=== PATIENT | female | born 1990 | race Caucasian/White ===

== ENCOUNTER → 2018-03-24 | Outpatient (CLI) | payer MEDICAID | LOC: FIMAGING 07:40 | PROVIDERS: ATTEND Obstetrics & Gynecology | DX: O99.212 Obesity complicating pregnancy, second trimester (principal); E66.9 Obesity, unspecified; Z68.41 Body mass index [BMI] 40.0-44.9, adult; Z3A.19 19 weeks gestation of pregnancy ==

== ENCOUNTER → 2018-04-12 | Outpatient (CLI) | payer MEDICAID | LOC: FIMAGING 10:23 | PROVIDERS: ATTEND Obstetrics & Gynecology | DX: O26.02 Excessive weight gain in pregnancy, second trimester (principal); Z3A.21 21 weeks gestation of pregnancy ==

== ENCOUNTER 2018-08-11 21:05 | Inpatient (IN) | payer MEDICAID, OTHER ==
[2018-08-11] MEDS ORDERED: OLIVE OIL 118 ML BTL MISC PRN (21:16)
[2018-08-11] MEDS ORDERED: LR 1,000 ML IV PRN (21:16)
[2018-08-11] MEDS ORDERED: MISOPROSTOL 200 MCG TAB PR PRN (21:16)
[2018-08-11] MEDS ORDERED: OXYTOCIN/RINGERS LACTATE 1,000 ML IV PRN (21:16)
[2018-08-11] MEDS ORDERED: LIDOCAINE 1% 300 MG/30 ML SDV SC PRN (21:16)
[2018-08-11] MEDS ORDERED: IBUPROFEN 600 MG TAB PO PRN (21:16)
[2018-08-11] MEDS ORDERED: TERBUTALINE SULFATE 1 MG/ML VIAL IV PRN (21:16)
[2018-08-11] MEDS ORDERED: EPSOM SALT 454 GM TP PRN (21:16)
[2018-08-11] MEDS ORDERED: DINOPROSTONE 10 MG VAG SUPP VG ONE (21:25)
--- NOTE | 2018-08-11 22:05 | GHP ---
DATE OF ADMISSION: 08/11/2018 ADMITTING DIAGNOSIS: Intrauterine at 39-1/7 weeks' gestation for elective induction of lab or secondary to history of shoulder dystocia. HISTORY OF PRESENT ILLNESS: The patient is a 27-year-old, 4, para 3-0-0-3, with a last menst rual period of 11/10/2017, and an EDC of 08/17/2018, which was confirmed by an 8-week ultrasound. Renetta cerda has had good care at [facility] since registration at 8 weeks' gestation. Her s ignificant risk factors are an elevated BMI. BMI in the first trimester was 40.1. She also has a history of shoulder dystocia with G2. That baby was 8 pounds 4 ounces and suffered a fracture d clavicle at delivery. Her 3rd baby was delivered without complication and that baby was 8 pounds 0 ounces. No other significant risk factors. She elected to have an induction of labor at 39 weeks t o possibly prevent macrosomia. Currently, she has no contractions. No significant vaginal bleeding and has had good movement. No other physical complaints. Negative review of systems. PAST OBSTETRICAL HISTORY: In May of 2008, she had a viable female, 8 pounds 8 ounces, vaginal deliv jeaneth, without complications. In December of 2009, she had a viable female, also 8 pounds 8 ounces, sh oulder dystocia with a fractured clavicle. In November 2011, she had a viable male, 8 pounds 0 ounces , without complications. For that , she was a gestational carrier and that baby is her neph ew. This baby will be hers. She has no other pregnancies. PAST GYNECOLOGICAL HISTORY: She had normal menarche at age 10, interval every 28-33 days, length of 5 days. She has sure and regular last menstrual period of 11/10/2017. She has no history of abnorma l Paps or irregular cycles. PAST MEDICAL HISTORY: Obesity with an elevated BMI. No other significant medical problems. PAST SURGICAL HISTORY: No significant surgical history. ALLERGIES: The patient has no known drug allergies. MEDICATIONS: Include vitamins with iron. LABORATORIES: In this , she is O positive. Antibody negative. RPR nonreactive. Rubella i mmune. Hepatitis negative. HIV negative. Pap normal. Gonorrhea and chlamydia normal. Verify norm al. AFP normal. Hematocrit 34.9. One hour GTT 129. GBS is negative. SOCIAL HISTORY: She is . She lives with her and her 2 daughters. She works in [employer]. She denies tobacco, alcohol, and drug use. No significant family history. OBJECTIVE: Today, she is afebrile. Vital signs are stable. heart tones are 130s, reactive, m oderate variability, category 1. She is not yris. The patient had a Rice placed in the offi ce which was unsuccessful and she is coming this evening for cervical ripening with Cervidil. ASSESSMENT AND PLAN: A 27-year-old, 4, para 3-0-0-3, 39-2/7 weeks' gestation for elective in duction of labor. Secondary history of shoulder dystocia. She is admitted for Cervidil for cervical ripening tonight and she will have Pitocin started in the morning. /[id number]/MODL
[2018-08-11 22:14] LABS: PLATELET COUNT 226 10^3/uL (150-400)
[2018-08-12] MEDS ORDERED: LIDOCAINE 1% 300 MG/30 ML SDV ONE (07:31)
[2018-08-12] MEDS ORDERED: TERBUTALINE SULFATE 1 MG/ML VIAL ONE (07:31)
[2018-08-12] MEDS ORDERED: AMMONIA AROMATIC 1 EACH AMP IH ONE (07:31)
[2018-08-12] MEDS ORDERED: OXYTOCIN 10 UNIT/ML VIAL ONE (07:31)
[2018-08-12] MEDS ORDERED: OLIVE OIL 118 ML BTL ONE (07:31)
[2018-08-12] MEDS ORDERED: MISOPROSTOL 200 MCG TAB ONE (07:32)
--- NOTE | 2018-08-12 09:44 | OBPROG ---
Labor Progress Note Assessment/Plan: Assessment:27 at 39w3d, undergoing elective induction, for history of shoulder dystocia with clavicle fracture with her 2nd delivery. Having some cramping with the Cervidil. Cephalic presentation confirmed. Plan: Remove cervidil at 1030 (12 hours). Check cervix. Likely start pitocin. Reviewed risks - including C/S, with use of pitocin, and with elective induction. EFW - was 38%ile at 36 wk scan by MFM. EFW by Driss's not accurate due to BMI 40. Pelvis has been tested to 8#10oz with last delivery, which was uncomplicated. Will have additional staff at the ready at time of delivery to prepare for possible shoulder dystocia. Marina Carter MD, [facility] 08/12/18 09:38 Subjective/Intrapartum Course: 08/12/18 09:44 Pt doing well. Feeling some irregular cramping. Was able to sleep this morning from about 0400 - 0700. Objective: 08/11/18 21:54 Patient ABO/Rh O POSITIVE 08/11/18 21:54 gen - pleasant obese female in NAD abd - soft, gravid, obese US done - confirms cephalic, currently appears ALTON ext - trace BLE edema, no calf tenderness - Contraction Pattern Assessment Current Contraction Pattern: Irregular - FHR Assessment Hines FHR (bpm): 135 FHR Pattern Variability: Moderate Oxytocin Orders Assessment - Pre-Induction/Augmentation Assessment Gestational Age: 39 week(s) and 1 day(s) ICD10 Worksheet Patient Problems: Problems Problem Status Onset Encounter for elective induction of labor Acute - ICD10 Problem Qualifiers (1) Encounter for elective induction of labor
[2018-08-12] MEDS ORDERED: LR 500 ML IV PRN (10:40)
[2018-08-12] MEDS ORDERED: OXYTOCIN/RINGERS LACTATE 500 ML IV SCH (11:00)
--- NOTE | 2018-08-12 14:26 | OBPROG ---
Labor Progress Note Assessment/Plan: Assessment:27 at 39w2d, undergoing elective induction, for history of shoulder dystocia with clavicle fracture with her 2nd delivery. Having some cramping with the Cervidil. Cephalic presentation confirmed. Plan: Remove cervidil at 1030 (12 hours). Check cervix. Likely start pitocin. Reviewed risks - including C/S, with use of pitocin, and with elective induction. EFW - was 38%ile at 36 wk scan by MFM. EFW by Driss's not accurate due to BMI 40. Pelvis has been tested to 8#10oz with last delivery, which was uncomplicated. Will have additional staff at the ready at time of delivery to prepare for possible shoulder dystocia. Marina Carter MD, [facility] 08/12/18 09:38 A/P: 27 undergoing elective IOL at 39w2d - making some progress with pitocin. Not in active labor yet. Will continue with pitocin. Marina Carter MD, [facility] 08/12/18 14:21 Subjective/Intrapartum Course: 08/12/18 09:44 Pt doing well. Feeling some irregular cramping. Was able to sleep this morning from about 0400 - 0700. Objective: 08/11/18 21:54 Patient ABO/Rh O POSITIVE 08/11/18 21:54 gen - pleasant, NAD SVE 3/60/ -3 - SVE Dilation (cm): 3 Effacement (%): 75 (60 %) Station: -3 Membranes: Intact - Contraction Pattern Assessment Current Contraction Pattern: Irregular - FHR Assessment Hines FHR (bpm): 130 (baseline seems to wander from 120-140) FHR Pattern Variability: Moderate FHR Category: 1 (mostly category 1 with intermittent Cat 2 with occasional variable decels and an occasional late appearing decel. Also had a period of tachycardia in the 160s [id number]) Oxytocin Orders Assessment - Pre-Induction/Augmentation Assessment Presentation: Vertex Gestational Age: 39 week(s) and 1 day(s) Gestational Age Determined By: Ultrasound, Last Menstral Period Estimated Weight: 4046-1317 Membrane Status: Intact Current Contraction Pattern: Irregular - Heart Rate Pattern Hines FHR Baseline (bpm): 130 FHR Category: 1 FHR Pattern Variability: Moderate FHR Accelerations: Absent FHR Decelerations: Variable - Oliveira's Score Dilation: 3-4cm Effacement: 60-70 Station: -3 Cervix: Medium Cervix Position: Posterior Oliveira Score Total: 5 - Induction/Augmentation Consent Risks/Benefits of Procedure Reviewed/Pt Agrees to Proceed: Yes ICD10 Worksheet Patient Problems: Problems Problem Status Onset Encounter for elective induction of labor Acute - ICD10 Problem Qualifiers (1) Encounter for elective induction of labor
[2018-08-12] MEDS ORDERED: BUPIVACAINE 0.25% 30 ML SDV ONE (16:25)
[2018-08-12] MEDS ORDERED: fentaNYL 2MCG/ML/BUP 0.1% RTU 100 ML BAG EP ONE (16:25)
[2018-08-12] MEDS ORDERED: PHENYLEPHRINE HCL 100 MCG/ML SYR ONE (16:25)
[2018-08-12] MEDS ORDERED: fentaNYL 100 MCG/2 ML INJ ONE (16:26)
[2018-08-12] MEDS ORDERED: PHENYLEPHRINE HCL 100 MCG/ML SYR IVP PRN (17:16)
[2018-08-12] MEDS ORDERED: ONDANSETRON 4 MG/2 ML VIAL IVP PRN (17:16)
[2018-08-12] MEDS ORDERED: NALOXONE HCL 0.4 MG/ML INJ IVP PRN (17:16)
--- NOTE | 2018-08-12 17:21 | PREANESOB ---
Obstetric Pre-Anesthesia Info - General Info Proposed Procedure: labor : 4 Para: 3 SAMEER: 08/17/18 Gestational Age: 39 week(s) and 1 day(s) - Info Status: Full Term Monitors: External FHR Pattern: Reassuring - Labor Status Cervical Dilation per last OB SVE: 3 Station per last OB SVE: -3 Pitocin: In Use Indications for Labor Analgesia: Augmentation of Labor, Induction of Labor, Pain Control Labor Epidural: Proposed (see OB notes for more OB info) Anesthesia ROS: prev anesthetics: labor epidural times 3 without problem; family history unknown-adopted; allergy: PCN-[place] childhood reaction; current meds: pnv; ros: morbid obesity, otherwise nl; see other software for vs; Allergies/Adverse Reactions: Allergy/AdvReac Type Severity Reaction Status Date / Time No Known Allergies Allergy Unverified 08/11/18 21:15 Visit Medications: Generic Name Dose Route Start Last Admin Trade Name Freq PRN Reason Stop Dose Admin Lactated Ringer's 1,000 mls @ 0 mls/hr 08/11/18 21:16 08/12/18 11:03 Lr IV 08/12/18 21:15 1,000 mls PRN PRN Administration SEE PROTOCOL CONDITIONS Protocol Per Protocol Oxytocin/Lactated Ringer's 1,000 mls @ 125 mls/hr 08/11/18 21:16 Pitocin 20 Units/Lr (Premix) IV PRN PRN Post bleeding Lactated Ringer's 500 mls @ 500 mls/hr 08/12/18 10:40 Lr IV 08/13/18 10:40 PRN PRN Maternal Hypotension Oxytocin/Lactated Ringer's 500 mls @ 0 mls/hr 08/12/18 11:00 08/12/18 11:03 Pitocin 30 Units/Lr (Premix) IV 02/08/19 10:59 500 mls CONT SARAH Administration Protocol Per Protocol Ibuprofen 600 mg 08/11/18 21:16 Motrin PO ONCE PRN post , pain Lidocaine HCl 300 mg 08/11/18 21:16 Lidocaine Hcl 1% SC 02/07/19 21:15 ONCE PRN episiotomy Magnesium Sulfate 454 gm 08/11/18 21:16 Epsom Salt TP 02/07/19 21:15 Q1H PRN perineal discomfort Misoprostol 800 - 1,000 mcg 08/11/18 21:16 Cytotec RI ONCE PRN Vaginal Atony/Bleeding Waterloo Oil 118 ml 08/11/18 21:16 Sweet Oil MISC 02/07/19 21:15 ONCE PRN perineal massage Terbutaline Sulfate 0.25 mg 08/11/18 21:16 Brethine IV 02/07/19 21:15 ONCE PRN Tachysystole Discontinued Medications Generic Name Dose Route Start Last Admin Trade Name Sheryl PRN Reason Stop Dose Admin Ammonia (Aromatic Spirit) Confirm 08/12/18 07:31 Ammonia Aromatic Administered 08/12/18 07:32 Dose 1 each IH .STK-MED ONE Bupivacaine HCl Confirm 08/12/18 16:25 Sensorcaine 0.25% Sdv Administered 08/12/18 16:26 Dose 30 ml .ROUTE .STK-MED ONE Dinoprostone 10 mg 08/11/18 21:25 08/11/18 22:25 Cervidil VG 08/11/18 21:26 10 mg ONCE ONE Administration Fentanyl Confirm 08/12/18 16:26 Sublimaze Administered 08/12/18 16:27 Dose 100 mcg .ROUTE .STK-MED ONE Fentanyl/Bupivacaine HCl Confirm 08/12/18 16:25 Fentanyl/Bupivacaine/Ns 2 Mcg/Ml 0.1% (Premix Administered 08/12/18 16:26 Dose 100 ml EP .STK-MED ONE Lidocaine HCl Confirm 08/12/18 07:31 Lidocaine Hcl 1% Administered 08/12/18 07:32 Dose 300 mg .ROUTE .STK-MED ONE Misoprostol Confirm 08/12/18 07:32 Cytotec Administered 08/12/18 07:33 Dose 1,000 mcg .ROUTE .STK-MED ONE Waterloo Oil Confirm 08/12/18 07:31 Sweet Oil Administered 08/12/18 07:32 Dose 118 ml .ROUTE .STK-MED ONE Oxytocin Confirm 08/12/18 07:31 Pitocin Administered 08/12/18 07:32 Dose 40 unit .ROUTE .STK-MED ONE Phenylephrine HCl Confirm 08/12/18 16:25 Neosynephrine Administered 08/12/18 16:26 Dose 1,000 mcg .ROUTE .STK-MED ONE Terbutaline Sulfate Confirm 08/12/18 07:31 Brethine Administered 08/12/18 07:32 Dose 1 mg .ROUTE .STK-MED ONE - Anesthesia History Response to Local Anesthetics: Normal Anesthesia & Operative History: No Prior Problems Family Anesthesia History: Not Applicable - Social History Substance Use/Abuse: Denies - Vital Signs Height/Weight (Nursing): Height 177.8 cm Weight 127.006 kg - Focused Exam Neck exam: FROM, increased neck circumference Mallampati Score: Class 2 Mouth exam: normal dental/mouth exam Pulmonary: no respiratory distress Cardiovascular: regular rate and rhythym Labs: 08/11/18 21:54 Patient ABO/Rh O POSITIVE 08/11/18 21:54 - Plan Consent Signed and on Chart: Yes Patient/Guardian Understands and Agrees to Plan: Yes Urgent/Emergent Case: Kateryna antunez completed preop but documented later for safe timely pt care
[2018-08-12] MEDS ORDERED: LR 500 ML IV SCH (17:30)
[2018-08-12] MEDS ORDERED: fentaNYL 2MCG/ML/BUP 0.1% RTU 100 ML EP SCH (17:30)
--- NOTE | 2018-08-12 18:33 | OBDEL ---
Info Type: Vaginal Presentation at Delivery: Vertex L&D Analgesia/Anesthesia Type: Epidural GBS+: No Intrapartum Medications: Generic Name Dose Route Start Last Admin Trade Name Freq PRN Reason Stop Dose Admin Lactated Ringer's 1,000 mls @ 0 mls/hr 08/11/18 21:16 08/12/18 11:03 Lr IV 08/12/18 21:15 1,000 mls PRN PRN Administration SEE PROTOCOL CONDITIONS Protocol Per Protocol Oxytocin/Lactated Ringer's 500 mls @ 0 mls/hr 08/12/18 11:00 08/12/18 11:03 Pitocin 30 Units/Lr (Premix) IV 02/08/19 10:59 500 mls CONT SARAH Administration Protocol Per Protocol Discontinued Medications Generic Name Dose Route Start Last Admin Trade Name Freq PRN Reason Stop Dose Admin Dinoprostone 10 mg 08/11/18 21:25 08/11/18 22:25 Cervidil VG 08/11/18 21:26 10 mg ONCE ONE Administration - Hospital Course Intrapartum: 08/12/18 09:44 Pt doing well. Feeling some irregular cramping. Was able to sleep this morning from about 0400 - 0700. Indications for Delivery: Elective (hx of shoulder dystocia with clavicle fracture with P2 delivery), SROM Vaginal Delivery - Delivery Provider Delivery Physician/CNM: Marina Carter - Labor and Delivery Onset of Contractions Date: 08/12/18 Onset of Contractions Time: 11:30 Onset of Contractions Type: Induced Rupture of Membranes Date: 08/12/18 Rupture of Membranes Time: 17:26 Rupture of Membranes Type: Spontaneous Amniotic Fluid Color: Clear Dilation Complete Date: 08/12/18 Dilation Complete Time: 17:26 Placenta Delivery Date: 08/12/18 Placenta Delivery Time: 17:43 Total Hours of Labor: 6 Laceration: 2nd Degree Repair: 3-0, Vicryl Vaginal Sponge Count Correct: Yes Vaginal Needle Count Correct: Yes Vaginal Sweep Performed: Yes EBL: 400 Delivery Events: None Delivery Comment: Pt was electively induced. Had Cervidil overnight, then pitocin was started around 1040. By 1415 she was 3 cm dilated. She received an epidural around 1630. She was completely dilated and had SROM of clear fluid at 1726. She pushed for <10 minutes and delivered at 1737 over an intact perineum. The fetus presented ALTON, and was bulb suctioned on the perineum. No nuchal cord. Easy delivery of body with an additional push and minimal gentle downward traction on the vertex. was delivered immediately to the maternal abdomen. Clamping of the cord was delayed x 1 minute. The cord was then clamped and cut, and cord blood was obtained, as was a segment which was later discarded. A small 2nd degree laceration was repaired with 3.0 Vicryl in a standard fashion. The bladder was straight catheterized for 300ml. Fundal massage and a sweep removed significant clots from the lower uterine segment after delivery of the placenta. Sponge, lap and needle counts were correct x 2. Pt and infant were left in the room with NOEMÍ Rivera in attendance. Data SAMEER: 08/17/18 ("Carson Sae") Gestational Age: 39 week(s) and 2 day(s) Hines Delivery Date: 08/12/18 Delivery Time: 17:37 Sex of Infant: Female Score (1 Min): 8 Score (5 Min): 9 ICD10 Worksheet Patient Problems: Problems Problem Status Onset Encounter for elective induction of labor Acute Normal vaginal delivery Acute Normal vaginal delivery Acute - ICD10 Problem Qualifiers (1) Encounter for elective induction of labor (2) Normal vaginal delivery (3) Normal vaginal delivery
[2018-08-12] MEDS ORDERED: SIMETHICONE 80 MG TAB CHEW PO PRN (18:59)
[2018-08-12] MEDS ORDERED: HYDROCORTISONE 0.5% CREAM TP PRN (18:59)
[2018-08-12] MEDS: IBUPROFEN 600 MG TAB PO SCH (19:45)
[2018-08-12] MEDS: ACETAMINOPHEN 325 MG TAB PO SCH (21:41)
[2018-08-13] MEDS: ACETAMINOPHEN 325 MG TAB PO SCH ×4 (00:54→20:41)
[2018-08-13] MEDS: IBUPROFEN 600 MG TAB PO SCH ×4 (01:38→20:41)
[2018-08-13] MEDS: DOCUSATE SODIUM 100 MG CAP PO PRN ×2 (06:36→20:41)
--- NOTE | 2018-08-13 10:36 | POSTANESTH ---
Post Anesthetic Evaluation Cardiovascular Status: Normal, Stable Respiratory Status: Normal, Stable Level of Consciousness/Mental Status: Can Participate in Eval Pain Control: Adequate, Prn Tx Ordered Nausea/Vomiting Control: Adequate, Prn Tx Ordered Complications Possibly Related to Anesthesia: None Noted (uneventful recovery from epidural)
--- NOTE | 2018-08-13 12:47 | OBPP ---
Progress Note Assessment/Plan: Assessment: 27 yo now , PPD1 s/p . - Routine cares. - H/H looks good, no need for iron supps. - Likely home tomorrow. - O pos, Rubella immune, VZV immune, GBS neg. JM Subjective/ Course: Charmaine is doing really well this AM. BF going well, pain controlled. Objective: 08/13/18 06:45 Patient ABO/Rh O POSITIVE 08/11/18 21:54 Temp Pulse Resp BP Pulse Ox 36.4 C 87 16 117/74 97 08/13/18 08:00 08/13/18 08:00 08/13/18 08:00 08/13/18 08:00 08/13/18 08:00 Laboratory Tests 08/11/18 08/13/18 21:54 06:45 Hct 34.2 L 33.8 L Laboratory Tests 01/28/18 01/28/18 07/20/18 08:00 08:00 15:42 Rubella IgG Antibody 84.30 Group B Strep DNA NEGATIVE VZV IgG Antibody Positive Uterine Position/Fundal Height: At Umbilicus Uterine Tone: Firm
[2018-08-14] MEDS: IBUPROFEN 600 MG TAB PO SCH ×2 (02:39→08:54)
[2018-08-14] MEDS: ACETAMINOPHEN 325 MG TAB PO SCH ×2 (02:39→08:54)
[2018-08-14 07:39] VITALS: BP 126/82
[2018-08-14] MEDS: DOCUSATE SODIUM 100 MG CAP PO PRN (08:53)
--- NOTE | 2018-08-14 09:13 | OBPP ---
Progress Note Assessment/Plan: Assessment:27 at 39w2d, undergoing elective induction, for history of shoulder dystocia with clavicle fracture with her 2nd delivery. Having some cramping with the Cervidil. Cephalic presentation confirmed. Plan: Remove cervidil at 1030 (12 hours). Check cervix. Likely start pitocin. Reviewed risks - including C/S, with use of pitocin, and with elective induction. EFW - was 38%ile at 36 wk scan by MFM. EFW by Driss's not accurate due to BMI 40. Pelvis has been tested to 8#10oz with last delivery, which was uncomplicated. Will have additional staff at the ready at time of delivery to prepare for possible shoulder dystocia. Marina Carter MD, [facility] 08/12/18 09:38 A/P: 27 undergoing elective IOL at 39w2d - making some progress with pitocin. Not in active labor yet. Will continue with pitocin. Marina Carter MD, [facility] 08/12/18 14:21 Subjective/ Course: Charmaine is doing really well this AM. BF going well, pain controlled. Objective: 08/13/18 06:45 Patient ABO/Rh O POSITIVE 08/11/18 21:54 Temp Pulse Resp BP Pulse Ox 36.2 C 81 17 126/82 H 95 08/14/18 07:38 08/14/18 07:38 08/14/18 07:38 08/14/18 07:38 08/14/18 07:38
--- NOTE | 2018-08-14 10:07 | OBPP ---
Progress Note Assessment/Plan: Assessment:27 at 39w2d, undergoing elective induction, for history of shoulder dystocia with clavicle fracture with her 2nd delivery. Having some cramping with the Cervidil. Cephalic presentation confirmed. Plan: Remove cervidil at 1030 (12 hours). Check cervix. Likely start pitocin. Reviewed risks - including C/S, with use of pitocin, and with elective induction. EFW - was 38%ile at 36 wk scan by MFM. EFW by Driss's not accurate due to BMI 40. Pelvis has been tested to 8#10oz with last delivery, which was uncomplicated. Will have additional staff at the ready at time of delivery to prepare for possible shoulder dystocia. Marina Carter MD, [facility] [place] 08/12/18 09:38 A/P: 27 undergoing elective IOL at 39w2d - making some progress with pitocin. Not in active labor yet. Will continue with pitocin. Marina Carter MD, [facility] [place] 08/12/18 14:21 08/14/18 10:02 A/P: 27 PPD #2 s/p , doing well, ready for dc home. See dc summary. Marina Carter MD, [facility] Subjective/ Course: Charmaine is doing really well this AM. BF going well, pain controlled. 08/14/18 10:05 Doing well, going well. Ambulating and voiding without difficulty. Objective: 08/13/18 06:45 Patient ABO/Rh O POSITIVE 08/11/18 21:54 Temp Pulse Resp BP Pulse Ox 36.2 C 81 17 126/82 H 95 08/14/18 07:38 08/14/18 07:38 08/14/18 07:38 08/14/18 07:38 08/14/18 07:38 Gen - pleasant, NAD CV - RRR chest - CTAB abd -soft, fundus firm at u-3, + NABS ext - calves NT, trace edema BLE Uterine Position/Fundal Height: Umbilicus -3 Uterine Tone: Firm
--- NOTE | 2018-08-14 10:13 | OBGCSDC ---
General Delivery Information - General Info : 4 Para: 4 Abortions: 0 Type: Vaginal L&D Analgesia/Anesthesia Type: Epidural Admission Date: 08/11/18 Labs: Patient ABO/Rh O POSITIVE 08/11/18 21:54 Hct 33.8 % (38.0-47.0) L 08/13/18 06:45 - Hospital Course Intrapartum: 08/12/18 09:44 Pt doing well. Feeling some irregular cramping. Was able to sleep this morning from about 0400 - 0700. : Charmaine is doing really well this AM. BF going well, pain controlled. 08/14/18 10:05 Doing well, going well. Ambulating and voiding without difficulty. Vaginal - Delivery Provider Delivery Physician/CNM: Marina Carter - Diagnosis Labor: Induced Rupture of Membranes Type: Spontaneous Amniotic Fluid Color: Clear Laceration: 2nd Degree Repair: 3-0, Vicryl Delivery Events: None - Delivery EBL: 400 Shanks Data SAMEER: 08/17/18 ("Malena Quevedo") Gestational Age: 39 week(s) and 4 day(s) Hines Delivery Date: 08/12/18 Delivery Time: 17:37 Sex of Infant: Female Shanks Weight (gm): 3044 g Score (1 Min): 8 Score (5 Min): 9 Discharge Information - Discharge Information Condition: Good Instruction/Follow Up: See Instruction Sheet, Four Weeks (appointment with [facility], if desired), Six Weeks (appointment with provider at [facility])
== END 2018-08-14 12:10 | disposition home or self-care (01) | DRG 775 ==
LOC: FLD 21:05 → FOB 08-12 20:07
PROVIDERS: ADMIT Obstetrics & Gynecology; ATTEND Obstetrics & Gynecology
PROC: 0KQM0ZZ Repair Perineum Muscle, Open Approach (ICD-10-PCS; principal; 2018-08-12)
PROC: 0U7C7ZZ Dilation of Cervix, Via Natural or Artificial Opening (ICD-10-PCS; principal; 2018-08-12)
PROC: 3E033VJ Introduction of Other Hormone into Peripheral Vein, Percutaneous Approach (ICD-10-PCS; principal; 2018-08-12)
PROC: 10E0XZZ Delivery of Products of Conception, External Approach (ICD-10-PCS; principal; 2018-08-12)
DX: O70.1 Second degree perineal laceration during delivery (principal); Z37.0 Single live birth; Z3A.39 39 weeks gestation of pregnancy
CPT/HCPCS: J2370; J2590; J3010; J3105